=== PATIENT | male | born 2000 | race Caucasian/White ===

== ENCOUNTER 2018-08-14 15:40 | Emergency (ER) | payer MEDICAID ==
[2018-08-14 15:51] VITALS: BP 149/84; Ht 180.3 cm
== END 2018-08-14 16:52 | disposition home or self-care (01) ==
LOC: ED 15:40
DX: S01.531A Puncture wound without foreign body of lip, initial encounter (principal); L08.9 Local infection of the skin and subcutaneous tissue, unspecified; Y04.0XXA Assault by unarmed brawl or fight, initial encounter; Y93.89 Activity, other specified; Y92.89 Other specified places as the place of occurrence of the external cause; Y99.8 Other external cause status